=== PATIENT | female | born 1995 | race Caucasian/White ===

== ENCOUNTER 2019-06-15 03:43 | Emergency (ER) | payer MEDICAID ==
[~2019-06-15] VITALS: Ht 157 cm; Wt 44.3 kg
[~2019-06-15 03:43] MED LIST: CLARTIN; ONDA4TAB11; acid reducer
[2019-06-15 04:26] LABS: BILIRUBIN,URINE NEGATIVE (NEGATIVE); CLARITY,URINE CLEAR; COLOR,URINE YELLOW; GLUCOSE, URINE (UA) NEGATIVE (NEGATIVE); KETONES,URINE NEGATIVE (NEGATIVE); LEUKOCYTE ESTERASE ,URINE NEGATIVE (NEGATIVE); NITRITE,URINE NEGATIVE (NEGATIVE); PH,URINE 6.5 (5-9); PROTEIN,URINE NEGATIVE (NEGATIVE)
[2019-06-15 04:34] LABS: BACTERIA,URINE TRACE /HPF
--- NOTE | 2019-06-15 05:18 | ED GU-Female ---
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 PT VERBALIZES ABD PAIN AND TIGHTNESS. PT STATES YESTERDAY HER SYMPTOMS WORSENED, PT NOTICED A MUCUS DICHARGE AFTER URINATING YESTERDAY. Nursing Sepsis Screen: No Definite Risk Source: patient Exam Limitations: no limitations History of Present Illness Date Seen by Provider: Jun 15, 2019 Time Seen by Provider: 04:05 Initial Comments This 24-year-old young lady at approximately 18 weeks gestational age presents to the emergency room with complaints of losing vaginal fluid and mucus with straining. This started yesterday and is particularly notable with cough, sneezing, or straining. She denies any significant pain but has a little bit of discomfort in the pelvis. She is afebrile. She denies urinary symptoms. Dr. Ramirez is her primary bill cutter. heart tones were in the 170s by Doppler. She feels a little anxious. Allergies and Home Medications Allergies Coded Allergies: No Known Drug Allergies (Unverified , 03/25/16) Home Medications Doxylamine Succinate/Vit B6 1 Each Tab.ir.dr, 1 EACH PO HS, (Reported) Vit37/Iron/Folic Acid 1 Each Tab.chew, 1 EACH PO DAILY, (Reported) Patient Home Medication List Home Medication List Reviewed: Yes Review of Systems Review of Systems Constitutional: no symptoms reported EENTM: no symptoms reported Respiratory: no symptoms reported Cardiovascular: no symptoms reported Gastrointestinal: no symptoms reported Genitourinary: see HPI : Yes Expected Date of Delivery: November 17, 2019 Musculoskeletal: no symptoms reported Skin: no symptoms reported Psychiatric/Neurological: See HPI Endocrine: No Symptoms Reported Past Skcribq-Yfdtmy-Swntap Hx Patient Social History Alcohol Use: Denies Use Recreational Drug Use: Yes Drug of Choice: marijuanna Smoking Status: Current Everyday Smoker Type Used: Cigarettes Recent Foreign Travel: No Contact w/Someone Who Travel: No Recent Infectious Disease Expo: No Recent Hopitalizations: No Physical Abuse: No Sexual Abuse: No Mistreated: No Fear: No Immunizations Up To Date Tetanus Booster (TDap): Unknown PED Vaccines UTD: Yes Seasonal Allergies Seasonal Allergies: No Past Medical History Surgeries: Yes Respiratory: No Cardiac: No Neurological: No : Yes Expected Date of Delivery: November 17, 2019 Last Menstrual Period: Feb 10, 2019 Reproductive Disorders: No Genitourinary: Yes UTI-Chronic Gastrointestinal: No Musculoskeletal: No Endocrine: No HEENT: No Cancer: No Psychosocial: No Integumentary: No Physical Exam Vital Signs Vital Signs - First Documented 06/15/19 03:57 Temp 36.9 Pulse 79 Resp 18 B/P (MAP) 134/87 (103) Pulse Ox 99 O2 Delivery Room Air Capillary Refill : Less Than 3 Seconds Height, Weight, BMI Height: 5'2" Weight: 103lbs. oz. 46.394241mz; 17.00 BMI Method:Stated General Appearance: WD/WN, no apparent distress, thin HEENT: PERRL/EOMI, normal ENT inspection Neck: normal inspection Cardiovascular: regular rate, rhythm, no edema, no murmur Respiratory: lungs clear, normal breath sounds, no respiratory distress, no accessory muscle use Gastrointestinal: normal bowel sounds, soft, tenderness (Subtle tenderness in the suprapubic region) Extremities: normal inspection, no pedal edema Neurologic/Psychiatric: pharm tech II-XII nml as tested, no motor/sensory deficits, alert, normal mood/affect, oriented x 3 Skin: normal color, warm/dry Progress/Results/Core Measures Suspected Sepsis Recent Fever Within 48 Hours: No Infection Criteria Present: None New/Unexplained Altered Menta: No Sepsis Screen: No Definite Risk SIRS Temperature: Pulse: 79 Respiratory Rate: 18 Blood Pressure 134 /87 Mean: 103 Results/Orders Lab Results Laboratory Tests Test 06/15/19 04:14 Range/Units Urine Color YELLOW Urine Clarity CLEAR Urine pH 6.5 5-9 Urine Specific [place] 1.020 1.016-1.022 Urine Protein NEGATIVE NEGATIVE Urine Glucose (UA) NEGATIVE NEGATIVE Urine Ketones NEGATIVE NEGATIVE Urine Nitrite NEGATIVE NEGATIVE Urine Bilirubin NEGATIVE NEGATIVE Urine Urobilinogen 0.2 < = 1.0 MG/DL Urine Leukocyte Esterase NEGATIVE NEGATIVE Urine RBC (Auto) NEGATIVE NEGATIVE Urine RBC NONE /HPF Urine WBC NONE /HPF Urine Squamous Epithelial Cells 10-25 H /HPF Urine Crystals NONE /LPF Urine Bacteria TRACE /HPF Urine Casts NONE /LPF Urine Mucus NEGATIVE /LPF Urine Culture Indicated NO My Orders Orders - GUANACO SEGURA MD Ua Culture If Indicated (06/15/19 04:12) Vital Signs/I&O 06/15/19 06/15/19 03:57 05:20 Temp 36.9 36.5 Pulse 79 86 Resp 18 18 B/P (MAP) 134/87 (103) 124/80 Pulse Ox 99 98 O2 Delivery Room Air Room Air Capillary Refill : Less Than 3 Seconds Blood Pressure Mean: 103 POS Progress Note : Progress Note UA was unremarkable. Case was discussed with Dr. Fuentes. He recommended sending the patient to labor and delivery to be checked for rupture of membranes. Departure Impression Primary Impression: Vaginal discharge during Qualified Codes: O26.891 - Other specified related conditions, first trimester; N89.8 - Other specified noninflammatory disorders of vagina Disposition: HOME, SELF-CARE Condition: Stable Departure-Patient Inst. Decision time for Depature: 05:17 Referrals: NO,LOCAL PHYSICIAN (PCP/Family) Primary Care Physician Patient Instructions: NO INSTRUCTIONS GIVEN Add. Discharge Instructions: Present to Labor and Delivery to be checked for rupture of membranes. All discharge instructions reviewed with patient and/or family. Voiced understanding. Copy Copies To 1: LISA JARVIS JOSHUA T MD Jun 15, 2019 05:18 POS
[2019-06-15 05:20] VITALS: BP 124/80
[2019-06-15] MEDS ORDERED: PREN-98 PO (05:46)
[2019-06-15] MEDS ORDERED: DOXY1TAB6 PO (05:48)
== END 2019-06-15 05:21 | disposition home or self-care (01) ==
LOC: EDUNIT# 03:43 → ER 03:49
DX: O99.89 Other specified diseases and conditions complicating pregnancy, childbirth and the puerperium (principal); N89.8 Other specified noninflammatory disorders of vagina; O99.332 Smoking (tobacco) complicating pregnancy, second trimester; F17.210 Nicotine dependence, cigarettes, uncomplicated; Z87.440 Personal history of urinary (tract) infections; Z3A.18 18 weeks gestation of pregnancy
CPT/HCPCS: 81000; 99282

== ENCOUNTER 2019-06-15 05:27 | Outpatient (CLI) | payer MEDICAID ==
--- NOTE | 2019-06-15 05:29 | NUR ---
ANGELES VIRK presented to unit via wheelchair from ED, accompanied by friend, with c/o PT STS FLUID & MUCUS COMES OUT WHEN PT COUGHS. ANGELES VIRK weighed, gowned, voided, and to bed. EFHM and TOCO applied, VS taken. ANGELES VIRK oriented to bed controls, call light, TV, heat, and A/C controls.
--- NOTE | 2019-06-15 05:35 | NUR ---
Pt reports instance leaking at 2300, and spotting clear fluid since that time when she sneezes or coughs, pt asked to cough, no visualization of leaking at periarea, nitrazine negative, see int. Wet to be collected and ran as stat lab.
[2019-06-15 05:41] VITALS: BP 129/69
[2019-06-15] MEDS ORDERED: PREN-98 PO (05:46)
[2019-06-15] MEDS ORDERED: DOXY1TAB6 PO (05:48)
--- NOTE | 2019-06-15 06:04 | NUR ---
[facility] lab staff reports wet prep was negative in all areas with rare wbcs noted.
--- NOTE | 2019-06-15 06:06 | NUR ---
0530 toco applied, no ctx noted, toco removed 0606 fht dopplered at 157-161 at time of toco removal. Discharge packet reviewed with pt, understanding voiced, needs denied. Pt up to change clothes.
--- NOTE | 2019-06-15 06:06 | NUR ---
notified of wet prep results and nitrazine negative, orders to reassure pt and d/c.
--- NOTE | 2019-06-15 06:14 | NUR ---
Pt ambulatory off unit at this time no ss distress, accompanied by friend.
--- NOTE | 2019-06-15 08:25 | Discharge Summary ---
Discharge Summary 18 weeks gestation with vaginal leukorrhea Not required for clinical evaluation patient had 18 weeks gestation with vaginal leukorrhea MILTON PUENTE MD Jun 15, 2019 08:25 POS
== END 2019-06-15 06:14 | disposition home or self-care (01) ==
LOC: WSo 05:27 → LDRP 05:30 → WSo 06:14
PROVIDERS: ATTEND Obstetrics & Gynecology
DX: O42.912 Preterm premature rupture of membranes, unspecified as to length of time between rupture and onset of labor, second trimester (principal); Z3A.18 18 weeks gestation of pregnancy
CPT/HCPCS: 87210; 99213

== ENCOUNTER → 2019-06-21 | Outpatient (CLI) | payer MEDICAID ==
[~2019-06-21] MED LIST changes: +DOXY1TAB6 PO; +ONDN4T PO; +PREN-98 PO
--- NOTE | 2019-06-21 15:46 | Diagnostic Imaging Report ---
INDICATION: survey. TECHNIQUE: Multiple real-time grayscale images were obtained over the gravid uterus. COMPARISON: None. FINDINGS: There is a single live fetus in a breech presentation. heart rate was recorded at 158 BPM. Placenta is anterior. Amniotic fluid volume is normal. Cervical length is 3.6 cm. survey shows kidneys, bladder, and stomach to be unremarkable. brain is unremarkable. There is a four-chamber heart. There is a three-vessel cord with normal insertion. The spine is unremarkable. Maternal adnexa are unremarkable. Biometrical measurements are as follows: Biparietal 4.39 cm, age 19 weeks 2 days. Head circumference 16.13 cm, age 19 weeks 0 days. Abdominal circumference 13.28 cm, age 18 weeks 6 days. Femur length 2.79 cm, age 18 weeks 4 days. Sonographic estimate age: 19 weeks 0 days. Sonographic estimated date of delivery: 11/15/19. Estimated Weight: 254 gm (+/- 37 gm). LMP percentile: 45%. heart rate: 158 beats per minute. number: 1 of 1. IMPRESSION: Single live IUP of 19 weeks 0 days gestational age. Estimated date of confinement sonographically is 11/15/2019. Dictated by: Dictated on workstation # [id number]
== END ==
LOC: RAD 12:12
PROVIDERS: ATTEND Obstetrics & Gynecology
DX: Z34.92 Encounter for supervision of normal pregnancy, unspecified, second trimester (principal); Z3A.19 19 weeks gestation of pregnancy
CPT/HCPCS: 76805

== ENCOUNTER 2019-08-06 18:49 | Observation (INO) | payer MEDICAID ==
[~2019-08-06] VITALS: Ht 157.5 cm; Wt 44.3 kg
[~2019-08-06 18:49] MED LIST changes: -ONDN4T PO
--- NOTE | 2019-08-06 18:54 | NUR ---
ANGELES VIRK presented to unit via ambulatory from ED, accompanied by self, with c/o BACK PAIN. ANGELES VIRK weighed, gowned, voided, and to bed. EFHM and TOCO applied, VS taken. ANGELES VIRK oriented to bed controls, call light, TV, heat, and A/C controls.
[2019-08-06] MEDS ORDERED: ONDN4T PO (19:01)
[2019-08-06 19:13] LABS: BILIRUBIN,URINE NEGATIVE (NEGATIVE); CLARITY,URINE CLEAR; COLOR,URINE YELLOW; GLUCOSE, URINE (UA) NEGATIVE (NEGATIVE); KETONES,URINE 1+ (NEGATIVE); LEUKOCYTE ESTERASE ,URINE 2+ (NEGATIVE); NITRITE,URINE NEGATIVE (NEGATIVE); PROTEIN,URINE TRACE (NEGATIVE)
[2019-08-06 19:20] VITALS: BP 126/66
[2019-08-06 19:28] LABS: BACTERIA,URINE MODERATE /HPF; WBC,URINE >100 /HPF
[2019-08-06 19:36] VITALS: BP 126/66
[2019-08-06] MEDS: D5 LR IV SOLUTION 1,000 ML IV SCH (20:07)
[2019-08-06] MEDS: ceFAZolin 2 GM/50 ML NS 50 ML IV SCH (20:08)
--- NOTE | 2019-08-06 20:28 | History & Physical-OB/GYN ---
History of Present Illness History of Present Illness Reason for visit/HPI Ms. Owens is 25 weeks that presented to Labor & Delivery with burning with urination and back (flank) pain. Admits to having UTIs in the past and thinks that she has one now. Date of Admission August 06, 2019 Date Seen by a Provider: Aug 06, 2019 Time Seen by a Provider: 20:15 I consulted on this patient on 08/06/19 20:23 Attending Physician Aysha Bernal DO Admitting Physician Kalpesh Trotter DO Consult Allergies and Home Medications Allergies Coded Allergies: No Known Drug Allergies (Unverified , 08/06/19) Home Medications Doxylamine Succinate/Vit B6 1 Each Tab.ir.dr, 1 EACH PO HS, (Reported) Ondansetron HCl 4 Mg Tab, 4 MG PO PRN, (Reported) Vit37/Iron/Folic Acid 1 Each Tab.chew, 1 EACH PO DAILY, (Reported) Patient Home Medication List Home Medication List Reviewed: Yes Past Lnttmle-Wgybiw-Drzmir Hx Patient Social History Drug of Choice: marijuanna Type Used: Cigarettes 2nd Hand Smoke Exposure: No Recent Foreign Travel: No Contact w/other who traveled: No Recent Hopitalizations: No Recent Infectious Disease Expo: No Immunizations Up To Date Tetanus Booster (TDap): Unknown Pediatric: Yes Date of Influenza Vaccine: May 23, 2019 Seasonal Allergies Seasonal Allergies: No Surgeries No Respiratory No Cardiovascular No Neurological No Reproductive System : Yes Hx Reproductive Disorders: No Genitourinary Yes UTI-Chronic Gastrointestinal No Musculoskeletal No Endocrine History of Endocrine Disorders: No HEENT History of HEENT Disorders: No Cancer No Psychosocial History of Psychiatric Problem: No Integumentary History of Skin or Integumenta: No Review of Systems Constitutional: see HPI Physical Exam Physical Exam Vital Signs Capillary Refill : Labs Laboratory Tests 08/06/19 19:00: Urine Color YELLOW, Urine Clarity CLEAR, Urine pH 7.0, Urine Specific [place] 1.020, Urine Protein TRACE, Urine Glucose (UA) NEGATIVE, Urine Ketones 1+H, Urine Nitrite NEGATIVE, Urine Bilirubin NEGATIVE, Urine Urobilinogen 0.2, Urine Leukocyte Esterase 2+H, Urine RBC (Auto) 1+H, Urine RBC NONE, Urine WBC >100H, Urine Crystals NONE, Urine Bacteria MODERATEH, Urine Casts NONE, Urine Mucus NEGATIVE, Urine Culture Indicated YES Assessment/Plan Assessment and Plan Assessment: Intrauterine at 25 weeks 2. Dysuria 3. Flank Pain 4. Pyelonephritis Plan: External Monitoring with Observation. IV fluids. IV antibiotics (Ancef). Admission Diagnosis Admission Status: Observation KALPESH TROTTER DO Aug 06, 2019 20:28
--- NOTE | 2019-08-06 22:00 | NUR ---
PT RESTING IN BED WATCHING TV, DENIES NEEDS.
[2019-08-06] MEDS ORDERED: ONDANSETRON 4 MG/2 ML (SDV) Z0FRAN IVP PRN (22:45)
[2019-08-07 00:05] VITALS: BP 117/54
[2019-08-07] MEDS: ceFAZolin 2 GM/50 ML NS 50 ML IV SCH ×2 (01:58→07:57)
[2019-08-07 03:55] VITALS: BP 124/59
[2019-08-07] MEDS: D5 LR IV SOLUTION 1,000 ML IV SCH (04:43)
--- NOTE | 2019-08-07 06:20 | NUR ---
dr dodd here at this time, plan of care reviewed with pt.
[2019-08-07] MEDS ORDERED: ONDN4T PO (06:40)
--- NOTE | 2019-08-07 06:45 | Discharge Summary ---
Diagnosis/Chief Complaint Date of Admission August 06, 2019 Date of Discharge August 07, 2019 Discharge Date: Aug 07, 2019 Discharge Time: 08:00 Admission Diagnosis Admission Diagnosis Intrauterine at 25 weeks 2. Dysuria 3. Back Pain 4. UTI Discharge Diagnosis Intrauterine at 25 weeks 2. Dysuria 3. Back Pain 4. UTI Reason Hospital Visit Ms. Owens is 25 weeks that presented to Labor & Delivery with burning with urination and back (flank) pain. Admits to having UTIs in the past and thinks that she has one now. Discharge Summary Hospital Course Was the Problem List Reviewed?: Yes Hospital Course Ms. Owens, 25 weeks gestation, was admitted for burning with urination and back pain. A urinalysis was obtained which demonstrated a possible UTI. She was started on IV antibiotics. External Monitoring with Observation was done overnight. This morning she admits to feeling better--still having back pain, but very low. We will discharge her to home with instructions, prescriptions and have her follow up with Dr. Bernal. Labs Laboratory Tests 08/06/19 19:00: Urine Ketones 1+H, Urine Leukocyte Esterase 2+H, Urine RBC (Auto) 1+H, Urine WBC >100H, Urine Bacteria MODERATEH Procedures None. Discharge Physical Examination Allergies: Coded Allergies: No Known Drug Allergies (Unverified , 08/06/19) Vitals & I&Os Vital Signs Date Time Temp Pulse Resp B/P (MAP) Pulse Ox O2 Delivery O2 Flow Rate FiO2 08/07/19 03:55 36.4 78 16 124/59 (80) Room Air 08/06/19 19:36 100 General Appearance: Alert, Oriented X3, Cooperative HEENT: Atraumatic Cardiovascular: Regular Rate, No Murmurs Abdominal: Normal Bowel Sounds Extremities: No Clubbing, No Cyanosis, No Edema Skin: No Rashes Neuro: Normal Gait, Normal Speech Psych/Mental Status: Mental Status NL Discharge Home Medications Reviewed and agree with Discharge Medication list on patient's Discharge Instruction sheet Instructions to Patient/Family Please see electronic discharge instructions given to patient. LAUREN RIZO DO Aug 07, 2019 06:45
--- NOTE | 2019-08-07 08:00 | NUR ---
PT SITTING UP IN BED, DRINKING COFFEE. S/O AT THE BEDSIDE. ANCEF HUNG AND INFUSING; SEE EMAR FOR FURTHER. PLAN TO RETURN IN APPROX 30 MINS TO WRAP UP DISCHARGE.
[2019-08-07 08:39] VITALS: BP 115/74
--- NOTE | 2019-08-07 08:52 | NUR ---
DISCHARGE PAPERS PROVIDED AND REVIEWED WITH PT, PT VERBALIZES UNDERSTANDING AND DENIES ANY QUESTIONS AT THIS TIME. RXS ALSO PROVIDED AT THIS TIME. PAPER SIGNED. S/O AT THE BEDSIDE.
--- NOTE | 2019-08-07 09:10 | NUR ---
PT DISCHARGED FROM [facility] TO [facility]IA AMBULATORY IN STABLE CONDITION ACC BY S/O.
== END 2019-08-07 09:10 | disposition home or self-care (01) ==
LOC: WSo 18:49 → LDRP 18:49 → WSo 18:53 → LDRP 18:54
PROVIDERS: ADMIT Obstetrics & Gynecology; ATTEND Obstetrics & Gynecology
DX: O23.42 Unspecified infection of urinary tract in pregnancy, second trimester (principal); O23.02 Infections of kidney in pregnancy, second trimester; O26.892 Other specified pregnancy related conditions, second trimester; R10.9 Unspecified abdominal pain; Z3A.25 25 weeks gestation of pregnancy
CPT/HCPCS: 81000; 87077; 87088; 87186; 96361; 96374; 96375; 96376; 99211; G0378

== ENCOUNTER → 2019-10-09 | Outpatient (CLI) | payer MEDICAID ==
[~2019-10-09] MED LIST changes: +ONDN4T PO
--- NOTE | 2019-10-09 16:29 | Diagnostic Imaging Report ---
INDICATION: Follow-up growth and amniotic fluid volume. TECHNIQUE: Multiple real-time grayscale images were obtained over the gravid uterus. COMPARISON: 06/21/2019. FINDINGS: There is a single live fetus in a vertex presentation. heart rate was recorded at 136 BPM. Placenta is anterior. Amniotic fluid index is 12.7 cm. No suspicious abnormality is detected. Biometrical measurements are as follows: Biparietal 8.49 cm, age 34 weeks 2 days. Head circumference 31.60 cm, age 35 weeks 4 days. Abdominal circumference 27.97 cm, age 32 weeks 1 days. Femur length 6.18 cm, age 32 weeks 1 days. Sonographic estimate age: 33 weeks 4 days. Sonographic estimated date of delivery: 11/23/2019. Estimated Weight: 1999 gm (+/- 292 gm). LMP percentile: 7%. heart rate: 136 beats per minute. number: 1 of 1. IMPRESSION: Single live IUP of 33 to 34 weeks gestational age showing normal interval growth when compared with prior exam. Dictated by: Dictated on workstation # [id number]
== END ==
LOC: RAD 15:23
PROVIDERS: ATTEND Nurse Practitioner Women's Health
DX: O26.843 Uterine size-date discrepancy, third trimester (principal); Z3A.33 33 weeks gestation of pregnancy
CPT/HCPCS: 76816